=== PATIENT | female | born 1985 | race Caucasian/White ===

== ENCOUNTER 2024-02-05 10:12 | Outpatient (CLI) | payer MEDICAID | END 2024-02-05 23:59 | disposition home or self-care (01) | LOC: RAD 10:12 | PROVIDERS: ATTEND Physician Assistant | DX: R22.41 Localized swelling, mass and lump, right lower limb (principal) | CPT/HCPCS: 76881 ==

== ENCOUNTER 2024-12-03 14:19 | Outpatient (CLI) | payer MEDICAID ==
--- NOTE | 2024-12-03 18:02 | RADIOLOGY REPORT ---
Procedure: US ULTRASOUND PELVIS W/ORWO DPLX 12/03/2024 02:53 PM Indication: IRREGULAR MENSTRUATION, UNSPECIFIED Comparison: None Technique: Real-time grayscale and color images were obtained utilizing transabdominal and transvagin al probes with spectral analysis performed. FINDINGS: UTERUS: Anteverted, measuring 8.6 cm in length. Heterogeneous parenchyma . A 2.4 x 2.2 cm intramur al /subserosal leiomyoma is seen in the anterior wall. ENDOMETRIAL STRIPE: 1.2 cm in thickness. Homogenous echotexture. No fluid in the endometrial canal. CERVIX: Few simple mildly complicated Nabothian cysts are seen measuring up to 1.2 cm. RIGH OVARY: 3 cm in length. Preserved vascular flow. No suspicious lesions identified. LEFT OVARY: 2.5 cm in length. Preserved vascular flow. No suspicious lesions identified. CUL-DE-SAC: No significant fluid noted. OTHER: None. IMPRESSION: 1. Findings compatible with uterine adenomyosis. 2. A 2.4 cm intramural leiomyoma noted in the anterior wall.
== END 2024-12-03 23:59 | disposition home or self-care (01) ==
LOC: RAD 14:19
PROVIDERS: ATTEND Nurse Practitioner
DX: D25.1 Intramural leiomyoma of uterus (principal); N92.6 Irregular menstruation, unspecified; N88.8 Other specified noninflammatory disorders of cervix uteri
CPT/HCPCS: 76830; 76856; 93976

== ENCOUNTER 2025-06-24 08:41 | Outpatient (CLI) | payer MEDICAID ==
--- NOTE | 2025-06-24 12:53 | RADIOLOGY REPORT ---
CLINICAL INDICATION: PAIN IN RIGHT SHOULDER COMPARISON: None. TECHNIQUE: Multiplanar, multisequence MRI of the right shoulder was performed without contrast. Contrast: None FINDINGS: Glenohumeral joint: There is no fracture or bone marrow edema. Alignment is maintained. No focal articular cartilage defect. There is no joint effusion or synovitis. Acromioclavicular joint: The acromioclavicular joint is normal in appearance. There is a type 2 acromion. Rotator cuff and bursae: Supraspinatus tendon is thickened with hyperintensity on the proton density sequence consistent with severe tendinopathy. There is also severe infraspinatus tendinopathy. Subscapularis and teres minor tendons are intact. There is no regional muscle atrophy. There is fluid in the subacromial subdeltoid bursa. Biceps tendon and glenoid labrum: The long head biceps tendon is located within the bicipital groove and intact. The labrum is unremarkable. IMPRESSION: 1. Severe supraspinatus and infraspinatus tendinopathy in the right shoulder. No full-thickness rotator cuff tear. 2. Subacromial subdeltoid bursitis. Type 2 acromion. Correlation for impingement syndrome is recommended.
== END 2025-06-24 23:59 | disposition home or self-care (01) ==
LOC: MRI02 08:41
PROVIDERS: ATTEND Student in an Organized Health Care Education/Training Program
DX: M75.101 Unspecified rotator cuff tear or rupture of right shoulder, not specified as traumatic (principal); M75.51 Bursitis of right shoulder; M25.511 Pain in right shoulder
CPT/HCPCS: 73221